=== PATIENT | male | born 1950 | race Asian ===

== ENCOUNTER 2023-04-03 12:13 | Inpatient (IN) | payer MEDICARE, MEDICAID ==
[~2023-04-03] VITALS: Ht 167.6 cm; Wt 68.5 kg
[2023-04-03] MEDS ORDERED: DILTIAZEM HCL 5 MG/ML 5 ML VIAL IVP ONE (12:45)
[2023-04-03 13:02] LABS: BASOPHILS % (AUTO) 0.9 % (0.0-2.0); EOSINOPHILS % (AUTO) 1.7 % (1.0-6.0); HEMATOCRIT 42.2 % (41-53); HEMOGLOBIN 14.2 g/dL (13.5-17.5); LYMPHOCYTES # (AUTO) 1.7 K/uL (1.0-4.8); LYMPHOCYTES % (AUTO) 17.9 % (22.0-44.0); MEAN CORPUSCULAR HEMOGLOBIN 31.2 pg (26.0-34.0); MEAN CORPUSCULAR HGB CONC 33.6 G/dL (31.0-37.0); MEAN CORPUSCULAR VOLUME 93 fL (80-100); MONOCYTES % (AUTO) 10.8 % (2.0-9.0); NEUTROPHILS # (AUTO) 6.7 K/uL (1.8-7.7); NEUTROPHILS % (AUTO) 68.7 % (40.0-70.0); PLATELET COUNT (AUTO) 291 K/uL (150-450); RED BLOOD CELL COUNT(AUTO) 4.54 MIL/uL (4.50-5.90); RED CELL DISTRIBUTION WIDTH 14.4 % (11.5-14.5)
[2023-04-03] MEDS ORDERED: DIGOXIN 250 MCG/ML 2 ML AMP IVP ONE (13:15)
[2023-04-03] MEDS ORDERED: AMIODARONE HCL 360 MG in DEXTROSE 5%-WATER 242.8 ML IV ONE (13:15)
[2023-04-03] MEDS ORDERED: AMIODARONE HCL 150 MG in DEXTROSE 5%-WATER 97 ML IV ONE (13:15)
[2023-04-03 13:23] LABS: ANION GAP 8 mmol/L (8-16); CARBON DIOXIDE 28 mmol/L (22-29); CHLORIDE 102 mmol/L (98-107); CREATININE 1.16 mg/dL (0.60-1.30); GLOMERULAR FILTR. RATE CALC > 60 mL/min (>60); GLUCOSE,RANDOM 116 mg/dL (70-110); SODIUM SERUM 138 mmol/L (136-145)
[2023-04-03 13:24] LABS: B-TYPE NATRIURETIC PEPTIDE 106 pg/mL (0-100)
[2023-04-03] MEDS ORDERED: HEPARIN SODIUM,PORCINE 5,000 UNITS/ML VIAL IVP ONE (13:30)
[2023-04-03] MEDS ORDERED: HEPARIN SODIUM,PORCINE 5,000 UNITS/ML VIAL IVP PRN ×2 (13:30)
[2023-04-03 13:37] LABS: ALANINE AMINOTRANSFERASE 13 U/L (12-78); ALBUMIN 3.8 g/dL (3.4-5.0); ALKALINE PHOSPHATASE 74 U/L (46-116); ASPARTATE AMINOTRANSFERASE 37 U/L (15-37); BILIRUBIN,TOTAL 0.6 mg/dL (0.1-1.0); LIPASE 48 U/L (16-77); THYROID STIMULATING HORMONE 1.67 uIU/mL (0.36-3.74); TOTAL PROTEIN, SERUM 8.3 g/dL (6.4-8.2)
[2023-04-03 13:44] LABS: INR 1.1 (0.9-1.1)
[2023-04-03] MEDS: HEPARIN SODIUM 25000 UNITS/D5W 250 ML IV PRN ×2 (14:08→21:23)
[2023-04-03] MEDS ORDERED: POTASSIUM CHLORIDE 10% 40 MEQ/30 ML LIQUID UDCUP PO ONE (14:15)
[2023-04-03] MEDS ORDERED: POTASSIUM CHL 10 MEQ/WATER 50 ML IV PRN (14:45)
[2023-04-03] MEDS ORDERED: ACETAMINOPHEN 325 MG TABLET PO PRN (14:45)
[2023-04-03] MEDS ORDERED: ONDANSETRON HCL 4 MG/2 ML VIAL IVP PRN (14:45)
[2023-04-03 15:00] LABS: COVID AG,FIA SOURCE NASOPHARYNGEAL
[2023-04-03 15:07] LABS: APPEARANCE,URINE CLEAR (CLEAR); BILIRUBIN,URINE NEGATIVE (NEGATIVE); GLUCOSE, URINE (UA) NEGATIVE (NEGATIVE); KETONES,URINE NEGATIVE (NEGATIVE); LEUKOCYTE ESTERASE ,URINE NEGATIVE (NEGATIVE); NITRATE,URINE NEGATIVE (NEGATIVE); OCCULT BLOOD,URINE NEGATIVE (NEGATIVE); PH,URINE 7.5 (5.0-8.0); PROTEIN,URINE NEGATIVE (NEGATIVE); SPECIFIC GRAVITIY, URINE 1.005 (1.003-1.030); UROBILINOGEN,URINE <=1.0 mg/dL (<=1.0)
[2023-04-03 17:41] VITALS: BP 122/80; PULSE 98; RESP 18; TEMP 98.7
[2023-04-03] MEDS ORDERED: AMIODARONE HCL 540 MG in DEXTROSE 5%-WATER 239.2 ML IV ONE (19:15)
[2023-04-03 20:24] VITALS: BP 122/85; PULSE 68; RESP 18; TEMP 98.3
[2023-04-03 20:30] LABS: INR 1.1 (0.9-1.1); PROTHROMBIN TIME 11.9 SEC (9.4-11.6)
[2023-04-03] MEDS: POTASSIUM CHLORIDE 20 MEQ ER TABLET PO PRN (21:17)
[2023-04-03] MEDS: DOCUSATE SODIUM 100 MG CAPSULE PO SCH (21:17)
[2023-04-04 00:06] VITALS: BP 145/71; PULSE 70; RESP 16; TEMP 98.1
[2023-04-04 02:30] LABS: INR 1.1 (0.9-1.1); PROTHROMBIN TIME 11.4 SEC (9.4-11.6)
[2023-04-04] MEDS: POTASSIUM CHLORIDE 20 MEQ ER TABLET PO PRN (04:58)
[2023-04-04 05:13] VITALS: BP 119/74; PULSE 78; RESP 16; TEMP 98
[2023-04-04 07:36] VITALS: BP 119/81; PULSE 63; RESP 16; TEMP 98
[2023-04-04] MEDS: DOCUSATE SODIUM 100 MG CAPSULE PO SCH (08:43)
[2023-04-04] MEDS ORDERED: FAMOTIDINE 20 MG TABLET PO SCH (09:00)
[2023-04-04] MEDS ORDERED: AMIODARONE HCL 200 MG TABLET PO SCH (10:00)
[2023-04-04] MEDS ORDERED: APIXABAN 5 MG TABLET PO SCH (10:00)
[2023-04-04] MEDS ORDERED: APIX5TAB PO (10:39)
[2023-04-04] MEDS ORDERED: AMIO200T68 PO (10:39)
[2023-04-04 11:03] LABS: BASOPHILS % (AUTO) 0.7 % (0.0-2.0); EOSINOPHILS % (AUTO) 1.1 % (1.0-6.0); HEMATOCRIT 43.6 % (41-53); HEMOGLOBIN 14.5 g/dL (13.5-17.5); LYMPHOCYTES # (AUTO) 1.6 K/uL (1.0-4.8); LYMPHOCYTES % (AUTO) 14.9 % (22.0-44.0); MEAN CORPUSCULAR HGB CONC 33.2 G/dL (31.0-37.0); MEAN CORPUSCULAR VOLUME 93 fL (80-100); MONOCYTES # (AUTO) 0.8 K/uL (0.1-1.0); MONOCYTES % (AUTO) 7.8 % (2.0-9.0); NEUTROPHILS # (AUTO) 7.9 K/uL (1.8-7.7); NEUTROPHILS % (AUTO) 75.5 % (40.0-70.0); PLATELET COUNT (AUTO) 292 K/uL (150-450); RED BLOOD CELL COUNT(AUTO) 4.68 MIL/uL (4.50-5.90); RED CELL DISTRIBUTION WIDTH 14.8 % (11.5-14.5)
[2023-04-04 11:12] VITALS: BP 122/71; PULSE 74; RESP 18; TEMP 97.8
[2023-04-04] MEDS ORDERED: AMIODARONE HCL 750 MG in DEXTROSE 5%-WATER 485 ML IV SCH (13:15)
== END 2023-04-04 14:00 | disposition home or self-care (01) | DRG 310 ==
LOC: EMS 12:13 → 5S 14:42 → 5N 17:15
PROVIDERS: ADMIT Internal Medicine; ATTEND Internal Medicine
DX: I48.20 Chronic atrial fibrillation, unspecified (principal); E87.6 Hypokalemia; Z20.822 Contact with and (suspected) exposure to COVID-19; E78.00 Pure hypercholesterolemia, unspecified; I10 Essential (primary) hypertension
CPT/HCPCS: 71045; 80053; 81003; 83690; 83735; 83880; 84132; 84443; 84484; 85025; 85610; 85730; 93005; 93306; 99285; J0282; J1160; J1644; J7060; 36415-L1; 36415-TC